=== PATIENT | female | born 1945 | race Caucasian/White ===

== ENCOUNTER 2019-05-20 15:33 | Emergency (ER) | payer OTHER, MEDICARE ==
[~2019-05-20] VITALS: Ht 154 cm; Wt 87.5 kg
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
[2019-05-20 16:08] LABS: BASOPHILS % (AUTO) 0 % (0-10); EOSINOPHILS # (AUTO) 0.1 10^3/uL (0.0-0.3); EOSINOPHILS % (AUTO) 2 % (0-10); HEMATOCRIT 42 % (35-52); HEMOGLOBIN 14.3 G/DL (11.5-16.0); LYMPHOCYTES # (AUTO) 1.4 X 10^3 (1.0-4.0); LYMPHOCYTES % (AUTO) 19 % (12-44); MEAN CORPUSCULAR HEMOGLOBIN 31 PG (25-34); MEAN CORPUSCULAR HGB CONC 34 G/DL (32-36); MEAN CORPUSCULAR VOLUME 93 FL (80-99); MONOCYTES # (AUTO) 0.5 X 10^3 (0.0-1.0); MONOCYTES % (AUTO) 7 % (0-12); NEUTROPHILS # (AUTO) 5.3 X 10^3 (1.8-7.8); NEUTROPHILS % (AUTO) 73 % (42-75); PLATELET COUNT 201 10^3/uL (130-400); WHITE BLOOD COUNT 7.4 10^3/uL (4.3-11.0)
[2019-05-20 16:25] LABS: ALANINE AMINOTRANSFERASE 28 U/L (0-55); ALKALINE PHOSPHATASE 64 U/L (40-136); BILIRUBIN,TOTAL 0.5 MG/DL (0.1-1.0); BUN/CREATININE RATIO 18; CALCIUM 9.8 MG/DL (8.5-10.1); CARBON DIOXIDE 26 MMOL/L (21-32); CHLORIDE 101 MMOL/L (98-107); GFR ESTIMATED > 60; GLUCOSE 96 MG/DL (70-105); POTASSIUM 4.1 MMOL/L (3.6-5.0); SODIUM 140 MMOL/L (135-145)
[2019-05-20 16:26] LABS: ALBUMIN 4.3 GM/DL (3.2-4.5); TOTAL PROTEIN 6.9 GM/DL (6.4-8.2)
[2019-05-20 16:27] LABS: INR 0.9 (0.8-1.4); PROTHROMBIN TIME PATIENT 12.7 SEC (12.2-14.7)
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
--- NOTE | 2019-05-20 16:37 | Diagnostic Imaging Report ---
EXAMINATION: CT Chest without contrast. TECHNIQUE: Multiple contiguous axial images were obtained through the chest without the use of intravenous contrast. All CT scans use one or more of the following dose optimizing techniques: automated exposure control, MA and/or KvP adjustment based on a patient size and exam type, or iterative reconstruction. HISTORY: Shortness of breath COMPARISON: None available. FINDINGS: The lungs are clear without edema or pneumonia. No pleural effusion or pneumothorax. No suspicious nodules. Heart size is normal. No pericardial effusion. Aorta is normal in caliber. There is no axillary or supraclavicular lymphadenopathy. There is no mediastinal lymphadenopathy. Limited views of the upper abdomen are unremarkable. There are no suspicious osseus lesions. IMPRESSION: 1. No acute abnormality in the chest. Dictated by: Dictated on workstation # [id number]
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
[2019-05-20 17:30] VITALS: BP 136/65
== END 2019-05-20 17:27 | disposition home or self-care (01) ==
LOC: ER FS 15:34
DX: S39.92XA Unspecified injury of lower back, initial encounter (principal); S60.212A Contusion of left wrist, initial encounter; R07.9 Chest pain, unspecified; V49.50XA Passenger injured in collision with unspecified motor vehicles in traffic accident, initial encounter
CPT/HCPCS: 36415; 71250; 72192; 73110; 80053; 84484; 85025; 85610; 85730; 93005

== ENCOUNTER → 2020-01-27 | Outpatient (CLI) | payer MEDICARE, OTHER ==
--- NOTE | 2020-01-27 10:41 | Diagnostic Imaging Report ---
INDICATION: Left knee pain, no known injury TECHNIQUE: 3 views of the left knee CORRELATION STUDY: None FINDINGS: There is a moderate narrowing at the medial compartment. Rather prominent marginal osteophytes noted projecting medially. Lateral compartment is better preserved. Slight lucency over the medial aspect of the lateral femoral condyle could reflect small osteochondral defect. Rather significant narrowing of patellofemoral compartment. Spur like formation about the distal anterior femur as well as superior and inferior pole of patella. Presence of suprapatellar joint effusion. IMPRESSION: 1. Advanced multicompartment degenerative changes left knee. Severe at the patellofemoral compartment and moderately severe at the medial compartment. Question small osteochondral defect at the medial aspect of the lateral femoral condyle. Dictated by: Dictated on workstation # [id number]
== END ==
LOC: RAD FS 09:53
PROVIDERS: ATTEND Nurse Practitioner
DX: M17.12 Unilateral primary osteoarthritis, left knee (principal)
CPT/HCPCS: 73562

== ENCOUNTER 2023-05-16 20:17 | Observation (INO) | payer MEDICARE, OTHER ==
[~2023-05-16] VITALS: Ht 154.9 cm; Wt 97.3 kg
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
[2023-05-16 20:45] LABS: HEMATOCRIT 43 % (35-52); HEMOGLOBIN 14.9 g/dL (11.5-16.0); MEAN CORPUSCULAR HEMOGLOBIN 32 pg (25-34); MEAN CORPUSCULAR HGB CONC 35 g/dL (32-36); MEAN CORPUSCULAR VOLUME 92 fL (80-99); MEAN PLATELET VOLUME 11.4 fL (9.0-12.2); PLATELET COUNT 262 10^3/uL (130-400); WHITE BLOOD COUNT 12.7 10^3/uL (4.3-11.0)
[2023-05-16] MEDS ORDERED: Tetanus/Diphtheria/Pertussis (Acell) ADULT Vaccine 0.5 ML IM ONE (20:45)
[2023-05-16] MEDS ORDERED: fentaNYL INJECTION 100 MCG/2 ML VIAL IVP ONE ×2 (20:45→22:45)
[2023-05-16] MEDS ORDERED: ceFAZolin INJECTION 2,000 MG in NS (IVPB) 50 ML 50 ML IV ONE (20:45)
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
[2023-05-16] MEDS ORDERED: IOHEXOL 350 MG/ML 100 ML (OMNIPAQUE 350) VIAL IV ONE (21:45)
[2023-05-16] MEDS ORDERED: NS 100 ML (IVPB) BAG IV ONE (21:45)
[2023-05-16] MEDS ORDERED: fentaNYL INJECTION 100 MCG/2 ML VIAL ONE (21:52)
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
[2023-05-16 22:52] LABS: ALBUMIN 3.6 GM/DL (3.2-4.5); CHLORIDE 106 MMOL/L (98-107); POTASSIUM 3.6 MMOL/L (3.6-5.0); SODIUM 138 MMOL/L (135-145)
[2023-05-16 22:53] LABS: CALCIUM 8.9 MG/DL (8.5-10.1)
[2023-05-16 22:55] LABS: GLUCOSE 142 MG/DL (70-105); TOTAL PROTEIN 6.1 GM/DL (6.4-8.2)
[2023-05-16 22:56] LABS: BILIRUBIN,TOTAL 0.4 MG/DL (0.1-1.0); CARBON DIOXIDE 21 MMOL/L (21-32)
[2023-05-16 22:58] LABS: ALKALINE PHOSPHATASE 77 U/L (40-136); CREATININE SERUM 0.75 MG/DL (0.60-1.30); GFR ESTIMATED 83
[2023-05-16 22:59] LABS: BUN/CREATININE RATIO 20
[2023-05-16 23:00] LABS: BILIRUBIN,DIRECT 0.2 MG/DL (0.0-0.3); BILIRUBIN,INDIRECT 0.2 MG/DL
[2023-05-16 23:01] LABS: ALANINE AMINOTRANSFERASE 36 U/L (0-55)
[2023-05-17 01:10] LABS: CLARITY,URINE CLEAR; COLOR,URINE YELLOW
[2023-05-17 01:11] LABS: BACTERIA,URINE TRACE /HPF; BILIRUBIN,URINE NEGATIVE (NEGATIVE); GLUCOSE, URINE (UA) NEGATIVE (NEGATIVE); KETONES,URINE NEGATIVE (NEGATIVE); LEUKOCYTE ESTERASE ,URINE NEGATIVE (NEGATIVE); NITRITE,URINE NEGATIVE (NEGATIVE); PH,URINE 6.5 (5-9); PROTEIN,URINE TRACE (NEGATIVE); RBC,URINE 0-2 /HPF; SQUAMOUS EPITHELIAL CELL,UR 0-2 /HPF
[2023-05-17] MEDS ORDERED: oxyCODONE/ACETAMINOPHEN 5/325MG TABLET ONE (01:28)
[2023-05-17] MEDS ORDERED: fentaNYL INJECTION 100 MCG/2 ML VIAL IVP ONE (01:30)
[2023-05-17] MEDS: oxyCODONE/ACETAMINOPHEN 5/325MG TABLET PO PRN ×3 (01:30→17:04)
[2023-05-17 01:47] VITALS: BP 143/102
[2023-05-17] MEDS ORDERED: RT-ALBUTEROL SULF 2.5 MG/3 ML PRE-MIX VIAL INH PRN (02:00)
[2023-05-17] MEDS ORDERED: MELATONIN 3 MG TABLET PO PRN (02:00)
[2023-05-17] MEDS ORDERED: ONDANSETRON INJECTION 4 MG/2 ML (SDV) IV PRN (02:00)
[2023-05-17] MEDS ORDERED: CATHETER FLUSH 10 ML SYR IVP PRN (02:00)
[2023-05-17 03:46] VITALS: BP 137/68
[2023-05-17] MEDS: fentaNYL INJECTION 100 MCG/2 ML VIAL IV PRN ×4 (04:41→15:12)
[2023-05-17] MEDS: CATHETER FLUSH 10 ML SYR IVP SCH ×2 (04:42→14:03)
[2023-05-17 07:57] VITALS: BP 152/78
--- NOTE | 2023-05-17 08:05 | Diagnostic Imaging Report ---
EXAMINATION: Chest 1 view HISTORY: Sternal fracture COMPARISON: 05/16/2023 FINDINGS: The lungs are clear without edema or pneumonia. No pleural effusion or pneumothorax. Heart size is normal. IMPRESSION: 1. Clear lungs. Dictated by: Dictated on workstation # [id number]
[2023-05-17] MEDS ORDERED: DOCUSATE SODIUM 100 MG CAPSULE PO SCH (09:00)
[2023-05-17] MEDS: RT-ALBUTEROL SULF 2.5 MG/3 ML PRE-MIX VIAL INH SCH ×2 (09:35→14:14)
[2023-05-17] MEDS ORDERED: PHEN37.58 PO (09:37)
[2023-05-17] MEDS ORDERED: BUPR300T98 PO (09:37)
[2023-05-17] MEDS ORDERED: POLY30DR6 OP (09:37)
[2023-05-17] MEDS ORDERED: HYDR25TA4 PO (09:37)
[2023-05-17] MEDS ORDERED: CALC-823 PO (09:37)
[2023-05-17] MEDS ORDERED: MAGN250T13 PO (09:37)
[2023-05-17] MEDS ORDERED: FLUT1BLS INH (09:37)
[2023-05-17] MEDS ORDERED: MULT-1136 PO (09:37)
[2023-05-17] MEDS ORDERED: OMEP40CA6 PO (09:37)
[2023-05-17 12:12] VITALS: BP 160/80
[2023-05-17 16:05] VITALS: BP 144/67
[2023-05-17 17:15] VITALS: BP 144/67
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
== END 2023-05-17 16:47 | disposition home or self-care (01) ==
LOC: EDUNIT# 20:17 → ER 20:18 → 4TH 22:45
PROVIDERS: ADMIT Surgery; ATTEND Surgery
DX: S52.202A Unspecified fracture of shaft of left ulna, initial encounter for closed fracture (principal); S52.92XA Unspecified fracture of left forearm, initial encounter for closed fracture; S22.21XA Fracture of manubrium, initial encounter for closed fracture; S52.91XA Unspecified fracture of right forearm, initial encounter for closed fracture; S52.201A Unspecified fracture of shaft of right ulna, initial encounter for closed fracture; S62.101A Fracture of unspecified carpal bone, right wrist, initial encounter for closed fracture; J45.909 Unspecified asthma, uncomplicated; V89.2XXA Person injured in unspecified motor-vehicle accident, traffic, initial encounter; Z28.310 Unvaccinated for COVID-19; Z79.899 Other long term (current) drug therapy
CPT/HCPCS: 29125; 70450; 70498; 71045 ×2; 71260; 72170; 73110; 73590; 74177; 80048; 80076; 81000; 84484; 85027; 86850; 86900; 86901; 93005; 93041; 94640; 94664; 94760; 96376; 99284; G0378; G0480; 36415; 80320; 90471; 90715; 96365; 96375